=== PATIENT | male | born 1980 | race Caucasian/White ===

== ENCOUNTER 2024-03-07 15:10 | Outpatient (CLI) | payer BC, SELFPAY | END 2024-03-07 15:11 | disposition home or self-care (01) | LOC: NFLDREF 03-09 07:44 | PROVIDERS: Visit Provider Physician Assistant Surgical | DX: Z01.818 Encounter for other preprocedural examination (principal) | CPT/HCPCS: 80053 ==

== ENCOUNTER 2024-09-12 11:00 | Outpatient (RCR) | payer BC, SELFPAY | END 2025-01-10 23:59 | disposition home or self-care (01) | PROVIDERS: Visit Provider Physician Assistant Surgical | DX: S83.511A Sprain of anterior cruciate ligament of right knee, initial encounter (principal); Z51.89 Encounter for other specified aftercare | CPT/HCPCS: 97110; 97140; 97161 ==